=== PATIENT | male | born 1965 | race Caucasian/White ===

== ENCOUNTER → 2016-11-30 | Outpatient (REF) | LOC: ZLAB.WCH 10:41 | DX: Z01.89 Encounter for other specified special examinations (principal) ==

== ENCOUNTER → 2017-03-30 | Outpatient (REF) | LOC: ZLAB.WCH 11:31 | DX: Z01.89 Encounter for other specified special examinations (principal) ==

== ENCOUNTER → 2017-04-01 | Outpatient (REF) | LOC: ZLAB.WCH 18:06 | DX: Z01.89 Encounter for other specified special examinations (principal) | CPT/HCPCS: G0103 ==

== ENCOUNTER → 2018-03-28 | Outpatient (REF) | LOC: ZLAB.WCH 08:36 | DX: Z01.89 Encounter for other specified special examinations (principal) | CPT/HCPCS: G0103 ==

== ENCOUNTER → 2018-04-17 | Outpatient (CLI) | payer BC | LOC: COL.RAD 08:19 | DX: N28.1 Cyst of kidney, acquired (principal); E26.9 Hyperaldosteronism, unspecified; I10 Essential (primary) hypertension | CPT/HCPCS: Q9967 ==